=== PATIENT | female | born 1970 | race Caucasian/White ===

== ENCOUNTER 2016-11-08 08:10 | Inpatient (IN) | payer OTHER ==
[~2016-11-08] VITALS: Ht 167.6 cm; Wt 83.5 kg
--- NOTE | 2016-11-08 08:21 | NUR ---
pt is in room #2a. dr carreno evaluated the pt.
[2016-11-08] MEDS ORDERED: LORAZEPAM 0.5 MG TABLET PO ONE (08:30)
[2016-11-08] MEDS ORDERED: LORAZEPAM 1 MG TABLET ONE (08:44)
[2016-11-08 09:02] LABS: ALANINE AMINOTRANSFERASE 16 U/L (14-59); ALKALINE PHOSPHATASE 56 U/L (50-136); ASPARTATE AMINOTRANSFERASE 11 U/L (15-37); BILIRUBIN,DIRECT 0.1 mg/dL (0.0-0.2); BILIRUBIN,TOTAL 0.6 mg/dL (0.2-1.0); CARBON DIOXIDE 25 mmol/L (21-32); CHLORIDE 106 mmol/L (98-107); GLUCOSE 109 mg/dL (74-106); POTASSIUM 3.7 mmol/L (3.5-5.1); TOTAL PROTEIN, SERUM 7.1 g/dL (6.4-8.2); UREA NITROGEN, BLOOD 14 mg/dL (7-18)
[2016-11-08 09:04] LABS: BASOPHILS # (AUTO) 0.1 K/uL (0.0-8.0); BASOPHILS % (AUTO) 0.5 % (0.0-2.0); EOSINOPHILS # (AUTO) 0.1 K/uL (0.0-0.7); EOSINOPHILS % (AUTO) 1.4 % (0.0-7.0); LYMPHOCYTES # (AUTO) 2.9 K/UL (0.8-4.8); LYMPHOCYTES % (AUTO) 28.9 % (20.5-51.5); MEAN CORPUSCULAR HEMOGLOBIN 19.5 UUG (27.0-31.0); MEAN CORPUSCULAR HGB CONC 30 g/dL (32.0-37.0); MONOCYTES # (AUTO) 0.7 K/UL (0.1-1.30); MONOCYTES % (AUTO) 7.3 % (0.0-11.0); NEUTROPHILS # (AUTO) 6.3 K/UL (1.8-8.9); NEUTROPHILS % (AUTO) 61.9 % (38.5-71.5); PLATELET COUNT (AUTO) 246 K/UL (150-450); WHITE BLOOD COUNT (AUTO) 10.1 K/UL (4.0-11.2)
[2016-11-08 09:06] LABS: ETHANOL < 3 MG/DL (0-0)
[2016-11-08 09:07] LABS: HEMOGLOBIN 9.9 G/DL (12.0-16.0); RED BLOOD CELL COUNT(AUTO) 5.05 MIL/UL (4.2-5.4)
[2016-11-08 09:08] LABS: HEMATOCRIT 32.8 % (37-47)
[2016-11-08 09:09] LABS: ACETAMINOPHEN < 2.0 ug/mL (10-30)
[2016-11-08] MEDS ORDERED: ASPIRIN 325 MG TABLET PO ONE (09:15)
--- NOTE | 2016-11-08 09:21 | NUR ---
dr handy was called for cardiolody consultation.
[2016-11-08 09:27] LABS: BAND % (MANUAL) 2 % (0-10); LYMPHOCYTES % (MANUAL) 35 % (20-40); MONOCYTES % (MANUAL) 7 % (2-10); NEUTROPHILS % (MANUAL) 56 % (42-75)
[2016-11-08] MEDS ORDERED: ASPIRIN 325 MG TABLET ONE (09:29)
[2016-11-08] MEDS ORDERED: FUROSEMIDE 20 MG/2 ML VIAL IV ONE (09:30)
[2016-11-08] MEDS ORDERED: FUROSEMIDE 20 MG/2 ML VIAL ONE (09:43)
--- NOTE | 2016-11-08 10:03 | NUR ---
report was given to sports apparel internship. pt was transfered to telemetry room #205.
[2016-11-08 10:46] VITALS: BP 152/72
--- NOTE | 2016-11-08 11:00 | NUR ---
Received this admission from ER per noah, 46 yo female, with the chief complaint of cough and palpitation, diagnosis of chest pain, elevated troponin. Transferred to bed comfortably. Routine admission care rendered. Placed on [facility] 102. Awake, alert, oriented x 4, able to move all extremities on purpose, ambulatory, continent. Saline lock to LFA g20. Dr. Llamas informed of admission.
[2016-11-08 11:26] VITALS: BP 154/82
[2016-11-08] MEDS ORDERED: HYDROMORPHONE 1 MG/1 ML DISP.SYRIN IV PRN (12:00)
[2016-11-08] MEDS: LORAZEPAM 2 MG/1 ML VIAL IV PRN ×2 (12:14→18:43)
--- NOTE | 2016-11-08 12:15 | NUR ---
Complaints of palpitation and anxiety. Ativan given as ordered. Echocardiogram at bedside
--- NOTE | 2016-11-08 14:20 | NUR ---
Resting at this time
[2016-11-08 15:20] VITALS: BP 120/57
[2016-11-08] MEDS ORDERED: ACETAMINOPHEN 325 MG TABLET PO PRN (17:00)
[2016-11-08] MEDS ORDERED: ALBUTEROL SULFATE 2.5 MG/3 ML NEBU NEB PRN (17:00)
[2016-11-08] MEDS ORDERED: ZOLPIDEM 5 MG TABLET PO PRN (17:00)
[2016-11-08] MEDS ORDERED: MAGNESIUM HYDROXIDE 30 ML LIQUID UDC PO PRN (17:00)
[2016-11-08] MEDS ORDERED: LORAZEPAM 2 MG/1 ML VIAL IV PRN (17:00)
[2016-11-08] MEDS ORDERED: LEVALBUTEROL HCL NEB 0.63 MG/3 ML NEBU NEB PRN (19:15)
[2016-11-08 19:44] LABS: CREATININE 1.1 mg/dL (0.6-1.3); POTASSIUM 3.8 mmol/L (3.5-5.1)
[2016-11-08 20:32] VITALS: BP 139/88
[2016-11-08] MEDS: ONDANSETRON 4 MG/2 ML VIAL IV PRN (20:58)
[2016-11-08] MEDS: FUROSEMIDE 20 MG/2 ML VIAL IV SCH (20:58)
[2016-11-08] MEDS: HYDROMORPHONE 2 MG/1 ML DISP.SYRIN IV PRN (20:59)
--- NOTE | 2016-11-08 22:00 | NUR ---
Seen & examined by Spun Paste Machine Operator. Left forearm IV line infiltrated, re-started new IV line to her right forearm w/ [id number]. Medicated for pain PRN. Patient received Lasix 20mg IVP tonight, assisted to bedside commode PRN. Tele sinus rhythm w/ PVCs, Bigeminy & w/ occasional tachy rhythm. No signs of distress.
[2016-11-09 00:33] VITALS: BP 137/84
[2016-11-09 04:00] VITALS: BP 146/97
[2016-11-09] MEDS: PANTOPRAZOLE SODIUM 40 MG TABLET.DR PO SCH (06:18)
[2016-11-09 06:21] LABS: BASOPHILS % (AUTO) 0.5 % (0.0-2.0); EOSINOPHILS # (AUTO) 0.2 K/uL (0.0-0.7); EOSINOPHILS % (AUTO) 2.1 % (0.0-7.0); HEMATOCRIT 34.8 % (37-47); HEMOGLOBIN 10.7 G/DL (12.0-16.0); LYMPHOCYTES # (AUTO) 1.8 K/UL (0.8-4.8); LYMPHOCYTES % (AUTO) 20.2 % (20.5-51.5); MEAN CORPUSCULAR HEMOGLOBIN 20.1 UUG (27.0-31.0); MEAN CORPUSCULAR HGB CONC 31 g/dL (32.0-37.0); MEAN CORPUSCULAR VOLUME 65.4 FL (81.0-99.0); MONOCYTES # (AUTO) 0.5 K/UL (0.1-1.30); MONOCYTES % (AUTO) 5.4 % (0.0-11.0); NEUTROPHILS # (AUTO) 6.4 K/UL (1.8-8.9); NEUTROPHILS % (AUTO) 71.8 % (38.5-71.5); PLATELET COUNT (AUTO) 283 K/UL (150-450); RED BLOOD CELL COUNT(AUTO) 5.32 MIL/UL (4.2-5.4); WHITE BLOOD COUNT (AUTO) 8.9 K/UL (4.0-11.2)
--- NOTE | 2016-11-09 06:27 | NUR ---
No significant change, remains asleep at this. Patient rested well. Vital signs remains elevated 146/97, sinus rhythm on the monitor.
[2016-11-09 06:47] LABS: THYROID STIMULATING HORMONE 1.681 mIU/mL (0.358-3.740)
[2016-11-09 07:00] LABS: BILIRUBIN,TOTAL 0.5 mg/dL (0.2-1.0); CREATININE 1.2 mg/dL (0.6-1.3); MAGNESIUM 2.2 mg/dL (1.8-2.4); PHOSPHOROUS 3.7 mg/dL (2.5-4.9); POTASSIUM 3.9 mmol/L (3.5-5.1); TOTAL PROTEIN, SERUM 7.6 g/dL (6.4-8.2)
[2016-11-09 08:01] LABS: LYMPHOCYTES % (MANUAL) 23 % (20-40); MONOCYTES % (MANUAL) 3 % (2-10); NEUTROPHILS % (MANUAL) 74 % (42-75)
[2016-11-09] MEDS: ASPIRIN EC 81 MG TABLET.DR PO SCH (10:36)
[2016-11-09] MEDS: FUROSEMIDE 20 MG/2 ML VIAL IV SCH ×2 (10:37→20:13)
[2016-11-09] MEDS: HYDROMORPHONE 2 MG/1 ML DISP.SYRIN IV PRN (10:44)
[2016-11-09 11:50] VITALS: BP 122/72
[2016-11-09 19:00] VITALS: BP 103/59
--- NOTE | 2016-11-09 21:45 | NUR ---
Received PT sleeping in bed and arousable. No SOB. Denies chest pain. VS stable. Routine Lasix 20mg IVP given. Assisted to the bathroom PRN. Sinus Rhythm with PVC's on monitor. Will continue to monitor.
[2016-11-09 23:47] VITALS: BP 127/67
[2016-11-10] MEDS: HYDROMORPHONE 2 MG/1 ML DISP.SYRIN IV PRN ×3 (03:51→21:29)
[2016-11-10] MEDS: LORAZEPAM 2 MG/1 ML VIAL IV PRN ×2 (03:52→13:07)
--- NOTE | 2016-11-10 03:54 | NUR ---
Patient awake, assisted to the bathroom, then patient c/o right lower chest discomfort & anxiousness. Tele shows Sinus rhythm w/ PVCs & HR- 86 Medicated w/ Dilaudid 0.5mg IVP & Ativan 1mg IVP. Will continue to monitor.
[2016-11-10 04:00] VITALS: BP 107/64
[2016-11-10] MEDS: PANTOPRAZOLE SODIUM 40 MG TABLET.DR PO SCH (06:20)
--- NOTE | 2016-11-10 07:02 | NUR ---
No significant change at this time. Pt remains asleep and easily arousable. No SOB noted. All routine medications given as ordered and tolerated well. Tele monitor shows Sinus Rhythm with PVC's. IV site patent and intact.
[2016-11-10 07:15] LABS: CREATININE 1.1 mg/dL (0.6-1.3); MAGNESIUM 2.1 mg/dL (1.8-2.4); PHOSPHOROUS 3.4 mg/dL (2.5-4.9); POTASSIUM 3.8 mmol/L (3.5-5.1)
[2016-11-10 07:35] LABS: BASOPHILS # (AUTO) 0.1 K/uL (0.0-8.0); EOSINOPHILS # (AUTO) 0.4 K/uL (0.0-0.7); EOSINOPHILS % (AUTO) 3.8 % (0.0-7.0); MONOCYTES % (AUTO) 5.2 % (0.0-11.0)
[2016-11-10 07:53] LABS: BASOPHILS % (AUTO) 0.7 % (0.0-2.0); HEMATOCRIT 36.4 % (37-47); LYMPHOCYTES # (AUTO) 2.6 K/UL (0.8-4.8); LYMPHOCYTES % (AUTO) 24.7 % (20.5-51.5); MEAN CORPUSCULAR HEMOGLOBIN 19.7 UUG (27.0-31.0); MEAN CORPUSCULAR HGB CONC 30 g/dL (32.0-37.0); MEAN CORPUSCULAR VOLUME 65.4 FL (81.0-99.0); MONOCYTES # (AUTO) 0.5 K/UL (0.1-1.30); NEUTROPHILS # (AUTO) 6.9 K/UL (1.8-8.9); NEUTROPHILS % (AUTO) 65.6 % (38.5-71.5); PLATELET COUNT (AUTO) 325 K/UL (150-450); RED BLOOD CELL COUNT(AUTO) 5.56 MIL/UL (4.2-5.4); WHITE BLOOD COUNT (AUTO) 10.5 K/UL (4.0-11.2)
[2016-11-10] MEDS: ASPIRIN EC 81 MG TABLET.DR PO SCH (08:15)
[2016-11-10] MEDS: FUROSEMIDE 20 MG/2 ML VIAL IV SCH ×2 (09:00→21:14)
[2016-11-10 09:57] LABS: EOSINOPHILS % (MANUAL) 3 % (0-8); LYMPHOCYTES % (MANUAL) 24 % (20-40); NEUTROPHILS % (MANUAL) 73 % (42-75)
[2016-11-10 12:09] VITALS: BP 107/63
[2016-11-10] MEDS ORDERED: LORAZEPAM 2 MG/1 ML VIAL IV ONE (13:00)
[2016-11-10] MEDS: ONDANSETRON 4 MG/2 ML VIAL IV PRN (13:07)
[2016-11-10 15:50] VITALS: BP 128/74
[2016-11-10] MEDS ORDERED: ALBUTEROL SULFATE 1.25 MG/3 ML NEBU NEB PRN (16:30)
[2016-11-10] MEDS: CARVEDILOL 3.125 MG TABLET PO SCH (18:55)
--- NOTE | 2016-11-10 19:40 | NUR ---
Received pt in bed, asleep and easily arousable when name called. C/O tolerable pain in right ribs at this time. Denies any chest pain. Able to reposition self for comfort. Safety measures and fall precaution maintained. Continue current plan of care.
[2016-11-10 19:50] VITALS: BP 90/63
--- NOTE | 2016-11-10 21:35 | NUR ---
Pt C/O right rib pain on scale of 7/10. Medicated as ordered and as needed. Continue to monitor.
[2016-11-11 05:09] VITALS: BP 119/54
--- NOTE | 2016-11-11 05:50 | NUR ---
Shift end report: Pt. slept well. Ambulatory to bathroom independently with steady gait. Medication x1 for pain with relief. No further complaints presented. All needs attended. Continue current plan of care.
[2016-11-11] MEDS: HYDROMORPHONE 2 MG/1 ML DISP.SYRIN IV PRN ×2 (06:17→14:00)
[2016-11-11] MEDS: PANTOPRAZOLE SODIUM 40 MG TABLET.DR PO SCH (07:00)
[2016-11-11] MEDS: FUROSEMIDE 20 MG/2 ML VIAL IV SCH (07:55)
[2016-11-11] MEDS ORDERED: TEMAZEPAM 15 MG CAPSULE PO PRN (08:00)
[2016-11-11] MEDS: CARVEDILOL 3.125 MG TABLET PO SCH ×2 (08:00→08:47)
--- NOTE | 2016-11-11 08:05 | NUR ---
Patient had what appeared to be a seizure lasting 30 seconds. Rapid response called to ensure patient safety. Dr. Llamas notified. Patient denied knowing her location, but was able to respond to name. Patient required vigorous sternal rubbing. BP 141/79, P 110, 94% RA. Track Service Person and Charge nurse present.
[2016-11-11] MEDS: ASPIRIN EC 81 MG TABLET.DR PO SCH ×2 (08:06→08:48)
[2016-11-11 08:43] LABS: CREATININE 1.1 mg/dL (0.6-1.3)
[2016-11-11 08:55] LABS: BASOPHILS % (AUTO) 0.3 % (0.0-2.0); EOSINOPHILS # (AUTO) 0.4 K/uL (0.0-0.7); EOSINOPHILS % (AUTO) 3.5 % (0.0-7.0); HEMATOCRIT 38.1 % (37-47); HEMOGLOBIN 11.6 G/DL (12.0-16.0); LYMPHOCYTES # (AUTO) 2.6 K/UL (0.8-4.8); LYMPHOCYTES % (AUTO) 23.9 % (20.5-51.5); MAGNESIUM 2.2 mg/dL (1.8-2.4); MEAN CORPUSCULAR HEMOGLOBIN 19.7 UUG (27.0-31.0); MEAN CORPUSCULAR HGB CONC 30 g/dL (32.0-37.0); MONOCYTES # (AUTO) 0.7 K/UL (0.1-1.30); MONOCYTES % (AUTO) 6.6 % (0.0-11.0); NEUTROPHILS # (AUTO) 7.3 K/UL (1.8-8.9); NEUTROPHILS % (AUTO) 65.7 % (38.5-71.5); PHOSPHOROUS 4.5 mg/dL (2.5-4.9); PLATELET COUNT (AUTO) 337 K/UL (150-450); RED BLOOD CELL COUNT(AUTO) 5.86 MIL/UL (4.2-5.4)
[2016-11-11] MEDS ORDERED: FERROUS SULFATE 325 MG TABEC PO SCH (09:00)
[2016-11-11] MEDS ORDERED: SERTRALINE HCL 50 MG TABLET PO SCH (09:00)
[2016-11-11 09:33] LABS: EOSINOPHILS % (MANUAL) 9 % (0-8); LYMPHOCYTES % (MANUAL) 25 % (20-40); MONOCYTES % (MANUAL) 4 % (2-10); NEUTROPHILS % (MANUAL) 62 % (42-75)
[2016-11-11 11:06] VITALS: BP 107/63
[2016-11-11] MEDS: ONDANSETRON 4 MG/2 ML VIAL IV PRN (13:59)
[2016-11-11 15:21] VITALS: BP 124/76
[2016-11-11] MEDS ORDERED: GABAPENTIN 300 MG CAPSULE PO SCH ×2 (15:45→22:00)
[2016-11-11] MEDS ORDERED: GABAPENTIN 300 MG CAPSULE PO ONE (16:00)
--- NOTE | 2016-11-11 16:29 | NUR ---
The patient will be discharged today back home [[address], [place] [address]] [address] Llamas. She currently resides with her boyfriend but he is unable to pick her up. Spoke to the patient and she was in agreement with her discharge. She requested for this court reporter to call her mother, Jacqueline [ ], about her discharge and the possibility of her providing the ride home. Spoke to Jacqueline and she stated that she is able to continuous pickling line pickler the patient around 6:00 p.m. The patient was made aware. Her RN, Briseida, is aware of her discharge plan.
[2016-11-11] MEDS ORDERED: FURO20TA4 PO (16:52)
[2016-11-11] MEDS ORDERED: TEMA15CA5 PO (16:52)
[2016-11-11] MEDS ORDERED: ALPR0.5T8 PO (16:52)
[2016-11-11] MEDS ORDERED: ASPI-618 PO (16:52)
[2016-11-11] MEDS ORDERED: CARV3.122 PO (16:52)
[2016-11-11] MEDS ORDERED: SERT50TA12 PO (16:52)
[2016-11-11] MEDS ORDERED: FERR325T28 PO (16:52)
[2016-11-11] MEDS ORDERED: GABA-534 PO (16:52)
[2016-11-11] MEDS ORDERED: ACET325T53 PO (16:52)
[2016-11-11] MEDS ORDERED: FUROSEMIDE 20 MG TABLET PO SCH (17:00)
--- NOTE | 2016-11-11 18:21 | NUR ---
Patient discharged from unit with mother. Discussed the importance of patient getting a follow up appointment. Patient has contact number for the primary physician. Dr. Teagan Shaffer. Patient also educated on the prescribed medications. Patient given information on Gabapentin to ensure seizures are kept at bay. Patient verbalized understanding. Armband removed. IV removed. Belongings returned. All discharge paperwork signed.
== END 2016-11-11 18:16 | disposition home or self-care (01) | DRG 194 ==
LOC: ER 08:10 → TELE 10:08 → MED 11-10 11:16
PROVIDERS: ADMIT Internal Medicine; ATTEND Internal Medicine
DX: I11.0 Hypertensive heart disease with heart failure (principal); I21.4 Non-ST elevation (NSTEMI) myocardial infarction; I42.9 Cardiomyopathy, unspecified; I50.23 Acute on chronic systolic (congestive) heart failure; F31.9 Bipolar disorder, unspecified; Z91.14 Patient's other noncompliance with medication regimen; E66.9 Obesity, unspecified; Z68.29 Body mass index [BMI] 29.0-29.9, adult; J06.9 Acute upper respiratory infection, unspecified; J44.9 Chronic obstructive pulmonary disease, unspecified; F41.0 Panic disorder [episodic paroxysmal anxiety]; G40.909 Epilepsy, unspecified, not intractable, without status epilepticus; E11.9 Type 2 diabetes mellitus without complications; F43.10 Post-traumatic stress disorder, unspecified; G43.909 Migraine, unspecified, not intractable, without status migrainosus; I49.3 Ventricular premature depolarization; I27.2 Other secondary pulmonary hypertension; I08.1 Rheumatic disorders of both mitral and tricuspid valves; Z82.49 Family history of ischemic heart disease and other diseases of the circulatory system; Z83.3 Family history of diabetes mellitus; Z82.3 Family history of stroke; Z87.898 Personal history of other specified conditions; Z87.442 Personal history of urinary calculi
CPT/HCPCS: 36415; 70030-TC; 71010; 83550; 83735; 84100; 84443; 85025; 93005; 93307; A4663; G0480; G0480-TC; J1170; J1940; J2060; J2405

== ENCOUNTER 2017-03-23 02:16 | Inpatient (IN) | payer OTHER ==
[~2017-03-23] VITALS: Ht 165.1 cm; Wt 74.8 kg
[~2017-03-23 02:16] MED LIST: ACET325T53 PO; ASPI-618 PO; CARV3.122 PO; FERR325T28 PO; FURO20TA4 PO; GABA-534 PO; SERT50TA12 PO
[2017-03-23 03:51] LABS: BASOPHILS % (AUTO) 0.4 % (0.0-2.0); EOSINOPHILS # (AUTO) 0.1 K/uL (0.0-0.7); EOSINOPHILS % (AUTO) 0.6 % (0.0-7.0); HEMATOCRIT 40.5 % (31.2-41.9); LYMPHOCYTES # (AUTO) 0.7 K/uL (20.0-40.0); LYMPHOCYTES % (AUTO) 5.1 % (20.5-51.5); MEAN CORPUSCULAR HEMOGLOBIN 24.2 uug (24.7-32.8); MEAN CORPUSCULAR HGB CONC 32 g/dL (32.3-35.6); MEAN CORPUSCULAR VOLUME 75.2 fL (75.5-95.3); MONOCYTES # (AUTO) 0.4 K/uL (2.0-10.0); MONOCYTES % (AUTO) 3.1 % (0.0-11.0); NEUTROPHILS % (AUTO) 90.8 % (38.5-71.5); PLATELET COUNT (AUTO) 351 K/uL (179-408); RED BLOOD CELL COUNT(AUTO) 5.38 MIL/uL (3.63-4.92); WHITE BLOOD COUNT (AUTO) 13.3 K/uL (3.8-11.8)
[2017-03-23 04:12] LABS: CREATININE 1.1 mg/dL (0.6-1.3); POTASSIUM 3.8 mmol/L (3.5-5.1)
[2017-03-23 04:24] LABS: BILIRUBIN,DIRECT 0.2 mg/dL (0.0-0.2); TOTAL PROTEIN, SERUM 7.4 g/dL (6.4-8.2)
[2017-03-23] MEDS ORDERED: ONDANSETRON IV *ER 4 MG/2 ML VIAL IV ONE (05:15)
[2017-03-23] MEDS ORDERED: HYDROMORPHONE 1 MG/1 ML DISP.SYRIN IV ONE (05:15)
[2017-03-23] MEDS ORDERED: HYDROMORPHONE 1 MG/1 ML DISP.SYRIN ONE (05:37)
[2017-03-23] MEDS ORDERED: ONDANSETRON 4 MG/2 ML VIAL ONE ×2 (05:38→09:59)
[2017-03-23] MEDS ORDERED: ACETAMINOPHEN 325 MG TABLET PO PRN ×2 (06:45→07:00)
[2017-03-23] MEDS ORDERED: MAGNESIUM HYDROXIDE 30 ML LIQUID UDC PO PRN (07:00)
[2017-03-23] MEDS ORDERED: Z GUARD REMEDY PASTE 57 GM TUBE TOP PRN (07:00)
[2017-03-23] MEDS ORDERED: HYDROCODONE/APAP 5-325MG TABLET PO PRN (07:00)
[2017-03-23] MEDS ORDERED: HYDROMORPHONE 2 MG/1 ML DISP.SYRIN ONE ×3 (08:52→21:25)
[2017-03-23] MEDS: CARVEDILOL 3.125 MG TABLET PO SCH ×2 (08:53→18:19)
[2017-03-23] MEDS ORDERED: FUROSEMIDE 40 MG/4 ML VIAL ONE (08:53)
[2017-03-23] MEDS ORDERED: CARVEDILOL 3.125 MG TABLET ONE (08:55)
[2017-03-23] MEDS: SERTRALINE HCL 50 MG TABLET PO SCH (08:55)
[2017-03-23] MEDS: HYDROMORPHONE 1 MG/1 ML DISP.SYRIN IV PRN ×3 (08:55→21:12)
[2017-03-23] MEDS ORDERED: SERTRALINE HCL 50 MG TABLET ONE (09:05)
[2017-03-23] MEDS: ONDANSETRON 4 MG/2 ML VIAL IV PRN ×2 (09:50→21:21)
[2017-03-23] MEDS ORDERED: FUROSEMIDE 40 MG/4 ML VIAL IV SCH (11:20)
[2017-03-23] MEDS: ASPIRIN EC 81 MG TABLET.DR PO SCH (13:55)
[2017-03-23 15:09] VITALS: BP 143/100
[2017-03-23] MEDS ORDERED: FUROSEMIDE 20 MG/2 ML VIAL IV SCH (15:45)
[2017-03-23] MEDS ORDERED: TEMAZEPAM 15 MG CAPSULE PO PRN (15:45)
[2017-03-23] MEDS: GABAPENTIN 300 MG CAPSULE PO SCH ×2 (16:18→22:00)
[2017-03-23] MEDS ORDERED: GABAPENTIN 300 MG CAPSULE PO SCH (17:00)
[2017-03-23] MEDS ORDERED: CARVEDILOL 3.125 MG TABLET PO SCH (18:00)
[2017-03-23] MEDS: HYDROCODONE/APAP 10-325 MG TABLET PO PRN (18:19)
[2017-03-23 20:00] VITALS: BP 145/99
[2017-03-23] MEDS ORDERED: CEFTRIAXONE 1 G in IV DEXTROSE 5% 50 ML IV SCH (21:30)
[2017-03-24] VITALS: BP 125/79
[2017-03-24 04:00] VITALS: BP 114/70
[2017-03-24] MEDS: ONDANSETRON 4 MG/2 ML VIAL IV PRN (04:25)
[2017-03-24] MEDS: HYDROMORPHONE 1 MG/1 ML DISP.SYRIN IV PRN (04:25)
[2017-03-24] MEDS ORDERED: HYDROMORPHONE 2 MG/1 ML DISP.SYRIN ONE (04:40)
[2017-03-24] MEDS: GABAPENTIN 300 MG CAPSULE PO SCH ×2 (05:44→15:39)
[2017-03-24 06:38] LABS: MAGNESIUM 2.2 mg/dL (1.8-2.4); PHOSPHOROUS 3.7 mg/dL (2.5-4.9); POTASSIUM 3.7 mmol/L (3.5-5.1)
[2017-03-24 06:54] LABS: BASOPHILS % (AUTO) 0.5 % (0.0-2.0); EOSINOPHILS # (AUTO) 0.2 K/uL (0.0-0.7); EOSINOPHILS % (AUTO) 3.4 % (0.0-7.0); HEMATOCRIT 38.8 % (31.2-41.9); HEMOGLOBIN 12.7 g/dL (10.9-14.3); LYMPHOCYTES # (AUTO) 1.2 K/uL (20.0-40.0); MEAN CORPUSCULAR HEMOGLOBIN 24.7 uug (24.7-32.8); MEAN CORPUSCULAR HGB CONC 33 g/dL (32.3-35.6); MEAN CORPUSCULAR VOLUME 75.6 fL (75.5-95.3); MONOCYTES # (AUTO) 0.6 K/uL (2.0-10.0); MONOCYTES % (AUTO) 9.6 % (0.0-11.0); NEUTROPHILS # (AUTO) 4.4 K/uL (1.8-8.9); NEUTROPHILS % (AUTO) 68.5 % (38.5-71.5); PLATELET COUNT (AUTO) 308 K/uL (179-408); RED BLOOD CELL COUNT(AUTO) 5.13 MIL/uL (3.63-4.92); WHITE BLOOD COUNT (AUTO) 6.4 K/uL (3.8-11.8)
[2017-03-24] MEDS: CARVEDILOL 3.125 MG TABLET PO SCH (08:14)
[2017-03-24] MEDS: SERTRALINE HCL 50 MG TABLET PO SCH (08:14)
[2017-03-24] MEDS: ASPIRIN EC 81 MG TABLET.DR PO SCH (08:15)
[2017-03-24] MEDS: HYDROCODONE/APAP 10-325 MG TABLET PO PRN (08:15)
[2017-03-24] MEDS ORDERED: FUROSEMIDE 40 MG TABLET PO SCH (09:00)
[2017-03-24] MEDS ORDERED: SERTRALINE HCL 50 MG TABLET PO SCH (09:00)
[2017-03-24 11:04] VITALS: BP 130/82
[2017-03-24] MEDS ORDERED: CIPR-262 PO (13:34)
[2017-03-24] MEDS ORDERED: METR500T PO (13:34)
[2017-03-24 15:12] VITALS: BP 111/76
== END 2017-03-24 17:30 | disposition home or self-care (01) ==
LOC: ER 02:20 → TRANSITION 11:13 → TELE 14:03
PROVIDERS: ADMIT Internal Medicine; ATTEND Nurse Practitioner Acute Care
DX: K80.20 Calculus of gallbladder without cholecystitis without obstruction (principal); I42.9 Cardiomyopathy, unspecified; I11.0 Hypertensive heart disease with heart failure; E44.1 Mild protein-calorie malnutrition; I27.20 Pulmonary hypertension, unspecified; I50.22 Chronic systolic (congestive) heart failure; N20.0 Calculus of kidney; I08.1 Rheumatic disorders of both mitral and tricuspid valves; Z68.27 Body mass index [BMI] 27.0-27.9, adult; Z79.899 Other long term (current) drug therapy; Z79.82 Long term (current) use of aspirin; E66.9 Obesity, unspecified; G43.909 Migraine, unspecified, not intractable, without status migrainosus; F31.9 Bipolar disorder, unspecified; Z87.442 Personal history of urinary calculi; K42.9 Umbilical hernia without obstruction or gangrene; I49.3 Ventricular premature depolarization; I25.2 Old myocardial infarction; I25.10 Atherosclerotic heart disease of native coronary artery without angina pectoris; F43.10 Post-traumatic stress disorder, unspecified; E11.9 Type 2 diabetes mellitus without complications; G40.909 Epilepsy, unspecified, not intractable, without status epilepticus
CPT/HCPCS: 36415; 70030-TC; 71045; 78445; 83690; 83735; 84100; 85025; 85730; 93005; A4663; A9537; J0696; J1170; J1940; J2405; J7050; J7060

== ENCOUNTER 2017-05-25 21:09 | Inpatient (IN) | payer OTHER ==
[~2017-05-25] VITALS: Ht 165.1 cm; Wt 81.8 kg
[~2017-05-25 21:09] MED LIST changes: +CIPR-262 PO; +METR500T PO
--- NOTE | 2017-05-25 21:27 | NUR ---
pt bib RA100. pt aaox3, screaming and crying c/o severe RLQ abdominal pain. pt very restless and unable to stay still. able to speak in clear and complete sentences and make needs known.
--- NOTE | 2017-05-25 21:31 | NUR ---
pt states she had this abdominal pain intermittently x1 week. has been taking norco but has not been effective
[2017-05-25] MEDS ORDERED: IV NORMAL SALINE 1000 ML BAG IV ONE (22:30)
[2017-05-25] MEDS ORDERED: METOCLOPRAMIDE HCL 10 MG/2 ML VIAL IV ONE (22:30)
[2017-05-25] MEDS ORDERED: MORPHINE SULFATE 2 MG/1 ML DISP.SYRIN IV ONE (22:30)
[2017-05-25] MEDS ORDERED: METOCLOPRAMIDE HCL 10 MG/2 ML VIAL ONE (22:34)
[2017-05-25] MEDS ORDERED: MORPHINE SULFATE 4 MG/1 ML DISP.SYRIN ONE (22:35)
[2017-05-25 22:47] LABS: BASOPHILS # (AUTO) 0.1 K/uL (0.0-8.0); BASOPHILS % (AUTO) 0.4 % (0.0-2.0); EOSINOPHILS # (AUTO) 0.2 K/uL (0.0-0.7); EOSINOPHILS % (AUTO) 1.5 % (0.0-7.0); HEMATOCRIT 45.8 % (31.2-41.9); HEMOGLOBIN 14.3 g/dL (10.9-14.3); LYMPHOCYTES # (AUTO) 1.5 K/uL (20.0-40.0); LYMPHOCYTES % (AUTO) 11.8 % (20.5-51.5); MEAN CORPUSCULAR HGB CONC 31 g/dL (32.3-35.6); MEAN CORPUSCULAR VOLUME 73.4 fL (75.5-95.3); MONOCYTES # (AUTO) 0.9 K/uL (2.0-10.0); MONOCYTES % (AUTO) 6.6 % (0.0-11.0); NEUTROPHILS # (AUTO) 10.3 K/uL (1.8-8.9); NEUTROPHILS % (AUTO) 79.7 % (38.5-71.5); PLATELET COUNT (AUTO) 337 K/uL (179-408); RED BLOOD CELL COUNT(AUTO) 6.24 MIL/uL (3.63-4.92)
[2017-05-25] MEDS ORDERED: diphenhydrAMINE 50 MG/1 ML VIAL ONE (22:54)
[2017-05-25 22:56] LABS: CREATININE 1.1 mg/dL (0.6-1.3); POTASSIUM 3.1 mmol/L (3.5-5.1)
[2017-05-25] MEDS ORDERED: diphenhydrAMINE 50 MG/1 ML VIAL IV ONE (23:00)
[2017-05-25 23:02] LABS: BILIRUBIN,DIRECT 0.1 mg/dL (0.0-0.2); BILIRUBIN,TOTAL 0.4 mg/dL (0.2-1.0); TOTAL PROTEIN, SERUM 8.5 g/dL (6.4-8.2)
--- NOTE | 2017-05-25 23:48 | NUR ---
Patient is resting comfortably in bed with eyes closed with mother at bedside.
[2017-05-26] MEDS ORDERED: diphenhydrAMINE 50 MG/1 ML VIAL ONE (00:34)
[2017-05-26] MEDS ORDERED: MORPHINE SULFATE 4 MG/1 ML DISP.SYRIN ONE ×2 (00:35→03:51)
[2017-05-26] MEDS ORDERED: diphenhydrAMINE 50 MG/1 ML VIAL IV ONE (00:45)
[2017-05-26] MEDS ORDERED: MORPHINE SULFATE 4 MG/1 ML DISP.SYRIN IV ONE ×2 (00:45→03:30)
[2017-05-26] MEDS ORDERED: ACETAMINOPHEN 325 MG TABLET PO PRN (03:15)
[2017-05-26] MEDS ORDERED: HYDROCODONE/APAP 5-325MG TABLET PO PRN (03:15)
[2017-05-26] MEDS ORDERED: ONDANSETRON 4 MG/2 ML VIAL IV PRN (03:15)
[2017-05-26] MEDS ORDERED: MAGNESIUM HYDROXIDE 30 ML LIQUID UDC PO PRN (03:15)
[2017-05-26] MEDS ORDERED: Z GUARD REMEDY PASTE 57 GM TUBE TOP PRN (03:15)
[2017-05-26] MEDS ORDERED: ALPR0.255 PO (03:53)
[2017-05-26] MEDS ORDERED: TEMA15CA PO (03:53)
[2017-05-26 04:18] LABS: BAND % (MANUAL) 1 % (0-10); EOSINOPHILS % (MANUAL) 1 % (0-8); LYMPHOCYTES % (MANUAL) 14 % (20-40); MONOCYTES % (MANUAL) 4 % (2-10); NEUTROPHILS % (MANUAL) 80 % (42-75)
--- NOTE | 2017-05-26 04:35 | NUR ---
Dr. Vo speaking with Dr. Mayfield with [facility]
[2017-05-26] MEDS ORDERED: KETAMINE HCL 500 MG/10 ML INJ IV ONE (05:30)
--- NOTE | 2017-05-26 05:30 | NUR ---
PT REFUSED TO BE TRANSFERRED TO [facility]. CALLED MOISES FELTON (TOOL GRINDER OPERATOR), PER MOISES, PT TO BE ADMITTED HERE [facility]IL [facility]. PT MADE AWARE.
[2017-05-26] MEDS ORDERED: KETAMINE HCL 500 MG/10 ML INJ ONE (05:53)
--- NOTE | 2017-05-26 06:13 | NUR ---
REPORT GIVEN TO INPT NURSE LUPE SIERRA.
--- NOTE | 2017-05-26 06:45 | NUR ---
PT ALERT IN NO ACUTE DISTRESS SLEEPING ADMITTED TO [facility]. BP 131/78 HR 74 O2 SAT 96% RA, T 100.2. AWAITING ADMITTING ORDERS. BED ALARM ON, 3 SIDE RAILS RAISED AND CALL LIGHT PLACED WITHIN REACH. CONTINUE TO MONITOR.
[2017-05-26 07:07] VITALS: BP 131/78
[2017-05-26] MEDS: GABAPENTIN 300 MG CAPSULE PO SCH ×4 (07:34→22:40)
--- NOTE | 2017-05-26 07:35 | NUR ---
PT AT THIS TIME IS TOO LETHARGIC TO TAKE MEDICATION ORALLY. THE MEDICATION WAS NOT VERIFIED AND PT DIDN'T ARRIVE ON THE UNIT UNTIL 0645 ACCORDING TO CUSTOMER GREETER NURSE.
[2017-05-26] MEDS: TAMSULOSIN HCL 0.4 MG CAP.SR.24H PO SCH (08:58)
[2017-05-26] MEDS: SERTRALINE HCL 50 MG TABLET PO SCH (08:59)
[2017-05-26] MEDS ORDERED: ASPIRIN EC 81 MG TABLET.DR PO SCH (09:00)
[2017-05-26] MEDS: CARVEDILOL 3.125 MG TABLET PO SCH ×2 (09:07→17:17)
[2017-05-26] MEDS: HYDROMORPHONE 2 MG/1 ML DISP.SYRIN IV PRN ×3 (09:54→21:13)
[2017-05-26] MEDS ORDERED: ALPRAZOLAM 0.25 MG TABLET PO PRN (10:30)
[2017-05-26] MEDS: PANTOPRAZOLE SODIUM 40 MG VIAL IV SCH (10:52)
[2017-05-26 11:19] LABS: BASOPHILS # (AUTO) 0.1 K/uL (0.0-8.0); BASOPHILS % (AUTO) 1.2 % (0.0-2.0); EOSINOPHILS # (AUTO) 0.1 K/uL (0.0-0.7); EOSINOPHILS % (AUTO) 1.5 % (0.0-7.0); LYMPHOCYTES # (AUTO) 1.8 K/uL (20.0-40.0); LYMPHOCYTES % (AUTO) 17.9 % (20.5-51.5); MEAN CORPUSCULAR HEMOGLOBIN 23.2 uug (24.7-32.8); MEAN CORPUSCULAR HGB CONC 32 g/dL (32.3-35.6); MEAN CORPUSCULAR VOLUME 72.6 fL (75.5-95.3); MONOCYTES # (AUTO) 0.9 K/uL (2.0-10.0); MONOCYTES % (AUTO) 9.2 % (0.0-11.0); NEUTROPHILS # (AUTO) 7.2 K/uL (1.8-8.9); NEUTROPHILS % (AUTO) 70.2 % (38.5-71.5); PLATELET COUNT (AUTO) 252 K/uL (179-408); RED BLOOD CELL COUNT(AUTO) 5.11 MIL/uL (3.63-4.92); WHITE BLOOD COUNT (AUTO) 10.2 K/uL (3.8-11.8)
[2017-05-26 11:28] LABS: HEMATOCRIT 37.1 % (31.2-41.9); HEMOGLOBIN 11.8 g/dL (10.9-14.3)
[2017-05-26 11:46] VITALS: BP 95/73
[2017-05-26 11:52] LABS: BILIRUBIN,TOTAL 0.5 mg/dL (0.2-1.0); CREATININE 1.3 mg/dL (0.6-1.3); MAGNESIUM 1.8 mg/dL (1.8-2.4); PHOSPHOROUS 3.2 mg/dL (2.5-4.9); POTASSIUM 3.5 mmol/L (3.5-5.1); TOTAL PROTEIN, SERUM 6.4 g/dL (6.4-8.2)
[2017-05-26 12:01] LABS: THYROID STIMULATING HORMONE 3.819 mIU/mL (0.358-3.740)
[2017-05-26] MEDS: CIPROFLOXACIN IV 400 MG in PREMIXED 1 EACH IV SCH ×2 (12:04→21:13)
[2017-05-26 12:50] LABS: EOSINOPHILS % (MANUAL) 1 % (0-8); LYMPHOCYTES % (MANUAL) 17 % (20-40); MONOCYTES % (MANUAL) 7 % (2-10); NEUTROPHILS % (MANUAL) 75 % (42-75)
[2017-05-26] MEDS ORDERED: ACETAMINOPHEN 650 MG SUPP.RECT RC PRN (13:45)
[2017-05-26] MEDS: PIPERACILLIN/TAZOBACTAM/D5W 3.375 G in PREMIXED 1 EACH IV SCH ×2 (14:47→22:40)
[2017-05-26] MEDS: IV D5 1/2 NS 1000 ML 1,000 ML IV PRN (17:49)
--- NOTE | 2017-05-26 18:17 | NUR ---
PT URINE COLLECTED AND STRAINED, NO STONE IN THE STRAINER ONLY WHITE RESIDUE IS COLLECTED. PT OBSERVED EATING IN BED ITCHMD Juan NOTIFIED BENADRYL ORDERED. PT HAS NO SIGNS OF RESPIRATORY DISTRESS AT THIS TIME. IV INTACT.CONTINUE TO MONITOR PT.
[2017-05-26] MEDS ORDERED: diphenhydrAMINE 25 MG CAP PO PRN (18:30)
[2017-05-26] MEDS: diphenhydrAMINE 50 MG/1 ML VIAL IV PRN (18:33)
--- NOTE | 2017-05-26 19:30 | NUR ---
Received patient laying comfortably in bed. Asleep at the moment. No acute distress noted. TELE Sinus Rhythm. IVF infusing. Bed is kept low and locked position. Room is kept clutter free. Safety initiated. Call light within reach. Will continue to monitor.
[2017-05-26 20:00] VITALS: BP 102/47
[2017-05-26] MEDS: TEMAZEPAM 15 MG CAPSULE PO SCH (21:00)
[2017-05-26 22:10] LABS: *BILIRUBIN,URIN NEGATIVE (NEGATIVE); *BLOOD, URINE Trace-intact (NEGATIVE); *CLARITY,URINE CLEAR (CLEAR); *COLOR,URINE DARK YELLOW (YELLOW); *KETONES,URINE NEGATIVE (NEGATIVE); *PROTEIN,URINE 1+ (NEGATIVE); *UROBILINOGEN,URINE 0.2 E.U./dl (NORMAL); LEUKOCYTE ESTERASE ,URINE NEGATIVE (NEGATIVE); NITRITE, URINE NEGATIVE (NEGATIVE); PH,URINE 5.5 (5.0-8.0); UGLUCOSE NEGATIVE (NEGATIVE)
[2017-05-26 22:16] LABS: BACTERIA,URINE FEW /HPF (NONE SEEN)
[2017-05-26 22:17] LABS: MUCUS,URINE FEW /LPF (0-FEW); SQUAMOUS EPITHELIAL CELL,UR FEW /HPF (NONE SEEN)
[2017-05-27] VITALS: BP 105/57
[2017-05-27] MEDS: HYDROMORPHONE 2 MG/1 ML DISP.SYRIN IV PRN ×2 (02:11→06:39)
[2017-05-27] MEDS: diphenhydrAMINE 50 MG/1 ML VIAL IV PRN ×2 (02:15→22:15)
[2017-05-27 04:00] VITALS: BP 151/82
[2017-05-27] MEDS: GABAPENTIN 300 MG CAPSULE PO SCH ×3 (05:31→22:07)
[2017-05-27] MEDS: PIPERACILLIN/TAZOBACTAM/D5W 3.375 G in PREMIXED 1 EACH IV SCH ×3 (05:36→22:07)
--- NOTE | 2017-05-27 05:57 | NUR ---
Patient slept intermittently t/o shift. C/o 10/ in Right upper quadrant pain through out shift. Meds given, stated relief. TELE Sinus Rhythm. Keep on Room Air. Vital signs stable. IVF infusing. IV site patent and intact. Safety and comfort measures maintained t/o shift. Maintain NPO t/o shift. Strained urine x 2, no stone visible, only white residue. All meds given as ordered. All needs met.
[2017-05-27 07:48] LABS: CREATININE 1.4 mg/dL (0.6-1.3); PHOSPHOROUS 3.5 mg/dL (2.5-4.9); POTASSIUM 4.2 mmol/L (3.5-5.1)
[2017-05-27 07:50] LABS: BASOPHILS # (AUTO) 0.1 K/uL (0.0-8.0); BASOPHILS % (AUTO) 0.6 % (0.0-2.0); EOSINOPHILS # (AUTO) 0.3 K/uL (0.0-0.7); EOSINOPHILS % (AUTO) 3.2 % (0.0-7.0); HEMATOCRIT 35.8 % (31.2-41.9); HEMOGLOBIN 11.2 g/dL (10.9-14.3); LYMPHOCYTES # (AUTO) 1.8 K/uL (20.0-40.0); LYMPHOCYTES % (AUTO) 21.6 % (20.5-51.5); MEAN CORPUSCULAR HEMOGLOBIN 23.3 uug (24.7-32.8); MEAN CORPUSCULAR HGB CONC 31 g/dL (32.3-35.6); MEAN CORPUSCULAR VOLUME 74.2 fL (75.5-95.3); MONOCYTES # (AUTO) 0.7 K/uL (2.0-10.0); MONOCYTES % (AUTO) 8.5 % (0.0-11.0); NEUTROPHILS # (AUTO) 5.5 K/uL (1.8-8.9); NEUTROPHILS % (AUTO) 66.1 % (38.5-71.5); PLATELET COUNT (AUTO) 259 K/uL (179-408); RED BLOOD CELL COUNT(AUTO) 4.82 MIL/uL (3.63-4.92); WHITE BLOOD COUNT (AUTO) 8.3 K/uL (3.8-11.8)
[2017-05-27] MEDS: CARVEDILOL 3.125 MG TABLET PO SCH ×2 (08:37→18:33)
[2017-05-27] MEDS: TAMSULOSIN HCL 0.4 MG CAP.SR.24H PO SCH (08:38)
[2017-05-27] MEDS: SERTRALINE HCL 50 MG TABLET PO SCH (08:38)
[2017-05-27] MEDS: PANTOPRAZOLE SODIUM 40 MG VIAL IV SCH (08:38)
[2017-05-27] MEDS: IV D5 1/2 NS 1000 ML 1,000 ML IV PRN ×2 (08:39→20:44)
[2017-05-27 08:49] LABS: BAND % (MANUAL) 1 % (0-10); BASOPHILS % (MANUAL) 1 % (0-2); EOSINOPHILS % (MANUAL) 4 % (0-8); LYMPHOCYTES % (MANUAL) 22 % (20-40); MONOCYTES % (MANUAL) 7 % (2-10); NEUTROPHILS % (MANUAL) 65 % (42-75)
[2017-05-27] MEDS ORDERED: ASPIRIN 300 MG RECTAL SUPP RC SCH (09:00)
--- NOTE | 2017-05-27 09:14 | NUR ---
PT REFUSED aspirin suppository. pt does not want suppository. explained risks and benefits. pt continues to refuse. will continue to monitor.
--- NOTE | 2017-05-27 09:27 | NUR ---
pt had bigeminy on cardiact monitor. will continue to observe.
[2017-05-27] MEDS: CIPROFLOXACIN IV 400 MG in PREMIXED 1 EACH IV SCH ×2 (09:46→20:44)
[2017-05-27] MEDS: MORPHINE SULFATE 4 MG/1 ML DISP.SYRIN IV PRN ×3 (10:34→22:07)
--- NOTE | 2017-05-27 11:27 | NUR ---
pt vitals assessed. pt bp low and pt showing irwin 99.3 low grade fever. urine strained and found small crystaliized stone. Lot Boss mansoor aware. chekced workers compensation adjuster and seen multifocal pvc with trigeminy. Lot Boss states to monitor patient and Md grayson will come in. will continue to monitor.
[2017-05-27 12:12] VITALS: BP 105/46
--- NOTE | 2017-05-27 15:11 | NUR ---
pt seen by dr rancho cervantes urologist. pt assessed. showed calculus to md and calculus was sent to lab for chemical analysis. diet advanced to soft diet. md ordered to continue fluids. check chart for md notes. pt can continue po meds as ordered. will continue to monitor.
[2017-05-27 15:16] VITALS: BP 102/41
--- NOTE | 2017-05-27 16:32 | NUR ---
helen ordered to have urine strained. restart iv 22 at right forearm. will continue to monitor.
--- NOTE | 2017-05-27 18:34 | NUR ---
checked vitals. Hr at 43 on vitals machine. reassessed with monitor and storage bin tender. hr at 86. bp within range. carvidelol given.
--- NOTE | 2017-05-27 18:56 | NUR ---
pt stable throughout the day. pt iv site intact. will endorse to material handler 2nd shift nurse.
--- NOTE | 2017-05-27 19:30 | NUR ---
Received patient laying in bed. Asleep at the moment. No acute distress noted. IVF infusing on the right FA. Safety initiated. Call light within reach. Will continue to monitor.
[2017-05-27 20:06] VITALS: BP 113/90
[2017-05-27] MEDS: LACTOBACILLUS RHAMNOSUS GG 1 EACH CAPSULE PO SCH (20:44)
[2017-05-27] MEDS: TEMAZEPAM 15 MG CAPSULE PO SCH (20:49)
[2017-05-28] MEDS: PIPERACILLIN/TAZOBACTAM/D5W 3.375 G in PREMIXED 1 EACH IV SCH ×2 (05:19→13:13)
[2017-05-28 05:24] VITALS: BP 112/86
[2017-05-28] MEDS: GABAPENTIN 300 MG CAPSULE PO SCH ×2 (06:04→13:16)
[2017-05-28] MEDS: diphenhydrAMINE 50 MG/1 ML VIAL IV PRN (06:04)
[2017-05-28] MEDS: MORPHINE SULFATE 4 MG/1 ML DISP.SYRIN IV PRN ×2 (06:04→11:15)
--- NOTE | 2017-05-28 06:12 | NUR ---
Patient slept t/o shift. No acute distress noted. Patient remains A&O x 4. Skin remains intact. Patient c/o pain 10/10 in the right upper quadrant, meds given, stated relief. Vital signs stable. IVF infusing. Urine is still being strained. No stone visible. Room was kept clutter free. Bed in low and locked position. Safety and comfort measures maintained t/o shift. All meds given as ordered. All needs met.
[2017-05-28 06:55] LABS: BASOPHILS # (AUTO) 0.1 K/uL (0.0-8.0); BASOPHILS % (AUTO) 0.8 % (0.0-2.0); EOSINOPHILS # (AUTO) 0.3 K/uL (0.0-0.7); HEMATOCRIT 34.6 % (31.2-41.9); HEMOGLOBIN 10.8 g/dL (10.9-14.3); LYMPHOCYTES # (AUTO) 1.5 K/uL (20.0-40.0); LYMPHOCYTES % (AUTO) 21.5 % (20.5-51.5); MEAN CORPUSCULAR HEMOGLOBIN 23.2 uug (24.7-32.8); MEAN CORPUSCULAR HGB CONC 31 g/dL (32.3-35.6); MEAN CORPUSCULAR VOLUME 74.1 fL (75.5-95.3); MONOCYTES # (AUTO) 0.6 K/uL (2.0-10.0); MONOCYTES % (AUTO) 9.4 % (0.0-11.0); NEUTROPHILS # (AUTO) 4.4 K/uL (1.8-8.9); NEUTROPHILS % (AUTO) 64.3 % (38.5-71.5); PLATELET COUNT (AUTO) 243 K/uL (179-408); RED BLOOD CELL COUNT(AUTO) 4.67 MIL/uL (3.63-4.92); WHITE BLOOD COUNT (AUTO) 6.8 K/uL (3.8-11.8)
[2017-05-28] MEDS ORDERED: PANTOPRAZOLE SODIUM 40 MG TABLET.DR PO SCH (07:00)
[2017-05-28 07:12] LABS: BILIRUBIN,TOTAL 0.3 mg/dL (0.2-1.0); CREATININE 1.2 mg/dL (0.6-1.3); PHOSPHOROUS 3.1 mg/dL (2.5-4.9); POTASSIUM 4.2 mmol/L (3.5-5.1); TOTAL PROTEIN, SERUM 6.1 g/dL (6.4-8.2)
--- NOTE | 2017-05-28 07:30 | NUR ---
Received patient laying in bed. Asleep at the moment. No acute distress noted. IVF infusing on the right FA. Safety initiated. Call light within reach. Will continue to monitoR
[2017-05-28] MEDS: SERTRALINE HCL 50 MG TABLET PO SCH (08:14)
[2017-05-28] MEDS: TAMSULOSIN HCL 0.4 MG CAP.SR.24H PO SCH (08:14)
[2017-05-28] MEDS: LACTOBACILLUS RHAMNOSUS GG 1 EACH CAPSULE PO SCH (08:14)
[2017-05-28] MEDS: CARVEDILOL 3.125 MG TABLET PO SCH (08:15)
[2017-05-28] MEDS: CIPROFLOXACIN IV 400 MG in PREMIXED 1 EACH IV SCH (08:18)
[2017-05-28 08:21] LABS: BAND % (MANUAL) 1 % (0-10); EOSINOPHILS % (MANUAL) 4 % (0-8); LYMPHOCYTES % (MANUAL) 20 % (20-40); MONOCYTES % (MANUAL) 13 % (2-10); NEUTROPHILS % (MANUAL) 62 % (42-75)
[2017-05-28] MEDS ORDERED: ASPIRIN 325 MG TABLET PO SCH (09:00)
[2017-05-28 11:37] LABS: IRON, SERUM 15 ug/dL (50-175)
[2017-05-28 12:52] VITALS: BP 98/50
[2017-05-28] MEDS ORDERED: LACT1CAP57 PO ×3 (13:29→13:51)
[2017-05-28] MEDS ORDERED: TAMS-3 PO (13:29)
[2017-05-28] MEDS ORDERED: FERR325T28 PO (13:29)
[2017-05-28] MEDS ORDERED: HYDR-3326 PO (13:29)
[2017-05-28] MEDS ORDERED: SERT50TA12 PO (13:29)
[2017-05-28] MEDS ORDERED: FERROUS SULFATE 325 MG TABEC PO SCH (13:30)
--- NOTE | 2017-05-28 15:09 | NUR ---
D/C ORDERS RECEIVED NOTED AND CARRIED OUT.D/C HEPLOCK PER MD ORDERS.D/C INSTRUCTIONS AND EDUCATION GIVEN TO THE PT.PT LEFT THE FACILITY VIA PRIVATE CAR IN STABLE CONDITION.,
== END 2017-05-28 15:15 | disposition home or self-care (01) | DRG 465 ==
LOC: ER 21:10 → MED 05-26 02:50 → TELE 05-26 13:25 → MED 05-27 12:15
PROVIDERS: ADMIT Internal Medicine; ATTEND Nurse Practitioner Acute Care
DX: N13.2 Hydronephrosis with renal and ureteral calculous obstruction (principal); N17.9 Acute kidney failure, unspecified; I24.8 Other forms of acute ischemic heart disease; R65.10 Systemic inflammatory response syndrome (SIRS) of non-infectious origin without acute organ dysfunction; I11.0 Hypertensive heart disease with heart failure; E44.0 Moderate protein-calorie malnutrition; I42.9 Cardiomyopathy, unspecified; I50.22 Chronic systolic (congestive) heart failure; D50.9 Iron deficiency anemia, unspecified; E11.9 Type 2 diabetes mellitus without complications; E83.51 Hypocalcemia; N20.0 Calculus of kidney; N13.0 Hydronephrosis with ureteropelvic junction obstruction; Z87.442 Personal history of urinary calculi; F31.9 Bipolar disorder, unspecified; G40.909 Epilepsy, unspecified, not intractable, without status epilepticus; K80.20 Calculus of gallbladder without cholecystitis without obstruction; M89.8X9 Other specified disorders of bone, unspecified site; I25.2 Old myocardial infarction; I25.10 Atherosclerotic heart disease of native coronary artery without angina pectoris; Z68.30 Body mass index [BMI] 30.0-30.9, adult; E87.6 Hypokalemia; F43.10 Post-traumatic stress disorder, unspecified; E02 Subclinical iodine-deficiency hypothyroidism; I08.1 Rheumatic disorders of both mitral and tricuspid valves; J98.11 Atelectasis; Z79.82 Long term (current) use of aspirin; I49.3 Ventricular premature depolarization; I27.20 Pulmonary hypertension, unspecified; G89.29 Other chronic pain; R16.0 Hepatomegaly, not elsewhere classified
CPT/HCPCS: 36415; 70030-TC; 71045; 76770; 78445; 82360; 83550; 83605; 83690; 83735; 84100; 84443; 84481; 84703; 85025; 85730; 87040; 87086; 93005; 93307; A4663; A9537; C9113; J0744; J1170; J1200; J2270; J2405; J2543; J2765; J3490; J7030; Q0163

== ENCOUNTER 2017-12-28 02:15 | Inpatient (IN) | payer OTHER ==
[~2017-12-28] VITALS: Ht 167.6 cm; Wt 80.4 kg
[~2017-12-28 02:15] MED LIST changes: +ALPR0.255 PO; -CARV3.122 PO; -FURO20TA4 PO; +HYDR-3326 PO; +LACT1CAP57 PO; -METR500T PO; +TAMS-3 PO; +TEMA15CA PO
--- NOTE | 2017-12-28 02:30 | NUR ---
Dr. Erickson at bedside for MSE.
[2017-12-28] MEDS ORDERED: ONDANSETRON 4 MG/2 ML VIAL ONE (02:38)
[2017-12-28] MEDS ORDERED: HYDROMORPHONE 1 MG/1 ML DISP.SYRIN ONE (02:38)
--- NOTE | 2017-12-28 02:40 | NUR ---
Xray at bedside.
[2017-12-28 02:44] LABS: BASOPHILS # (AUTO) 0.1 K/uL (0.0-8.0); BASOPHILS % (AUTO) 1.1 % (0.0-2.0); EOSINOPHILS # (AUTO) 0.3 K/uL (0.0-0.7); EOSINOPHILS % (AUTO) 2.7 % (0.0-7.0); HEMATOCRIT 38.2 % (31.2-41.9); HEMOGLOBIN 12.2 g/dL (10.9-14.3); LYMPHOCYTES # (AUTO) 2.5 K/uL (20.0-40.0); LYMPHOCYTES % (AUTO) 24.9 % (20.5-51.5); MEAN CORPUSCULAR HEMOGLOBIN 22.1 uug (24.7-32.8); MEAN CORPUSCULAR HGB CONC 32 g/dL (32.3-35.6); MEAN CORPUSCULAR VOLUME 69.2 fL (75.5-95.3); MONOCYTES # (AUTO) 0.8 K/uL (2.0-10.0); MONOCYTES % (AUTO) 8.6 % (0.0-11.0); NEUTROPHILS # (AUTO) 6.2 K/uL (1.8-8.9); NEUTROPHILS % (AUTO) 62.7 % (38.5-71.5); PLATELET COUNT (AUTO) 365 K/uL (179-408); RED BLOOD CELL COUNT(AUTO) 5.51 MIL/uL (3.63-4.92); WHITE BLOOD COUNT (AUTO) 9.9 K/uL (3.8-11.8)
[2017-12-28] MEDS ORDERED: HYDROMORPHONE 1 MG/1 ML DISP.SYRIN IV ONE (02:45)
[2017-12-28] MEDS ORDERED: IV NORMAL SALINE 1000 ML BAG IV ONE (02:45)
[2017-12-28] MEDS ORDERED: ONDANSETRON 4 MG/2 ML VIAL IV ONE (02:45)
[2017-12-28 02:53] LABS: CREATININE 1.1 mg/dL (0.6-1.3); POTASSIUM 3.3 mmol/L (3.5-5.1)
[2017-12-28 03:05] LABS: BILIRUBIN,DIRECT 0.1 mg/dL (0.0-0.2); BILIRUBIN,TOTAL 0.5 mg/dL (0.2-1.0); TOTAL PROTEIN, SERUM 8.4 g/dL (6.4-8.2)
--- NOTE | 2017-12-28 03:13 | NUR ---
Patient states her face is itching. MD notified.
[2017-12-28] MEDS ORDERED: diphenhydrAMINE 50 MG/1 ML VIAL IV ONE (03:15)
--- NOTE | 2017-12-28 03:23 | NUR ---
Ultrasound at bedside.
[2017-12-28] MEDS ORDERED: diphenhydrAMINE 50 MG/1 ML VIAL ONE (03:25)
[2017-12-28] MEDS ORDERED: FUROSEMIDE 40 MG/4 ML VIAL ONE (03:25)
[2017-12-28] MEDS ORDERED: FUROSEMIDE 20 MG/2 ML VIAL IV ONE (03:30)
[2017-12-28 03:32] LABS: EOSINOPHILS % (MANUAL) 3 % (0-8); LYMPHOCYTES % (MANUAL) 29 % (20-40); MONOCYTES % (MANUAL) 5 % (2-10); NEUTROPHILS % (MANUAL) 63 % (42-75)
[2017-12-28] MEDS ORDERED: LORAZEPAM 2 MG/1 ML VIAL ONE (03:33)
[2017-12-28] MEDS ORDERED: MORPHINE SULFATE 4 MG/1 ML DISP.SYRIN ONE (03:33)
--- NOTE | 2017-12-28 03:38 | NUR ---
Patient was noted with an episodes of severe pain , anxiety, and subjective SOB. Patient HR @ 99, SaO2 @ 100% on R/A at this time. ER MD at bedside during this episode, new orders noted and carried out. US at bedside, patient has a 3cm gallstone per findings.
--- NOTE | 2017-12-28 03:40 | NUR ---
Per ER MD, patient is not stable for transfer. Patient to be admitted to Telemetry.
--- NOTE | 2017-12-28 03:40 | NUR ---
Dr. Erickson on panel call with Tristin Sofia MD. Pt accepted to Tele, diagnosis Congestive Heart Failure.
[2017-12-28] MEDS ORDERED: MAGNESIUM HYDROXIDE 30 ML LIQUID UDC PO PRN (03:45)
[2017-12-28] MEDS ORDERED: MORPHINE SULFATE 4 MG/1 ML DISP.SYRIN IV ONE (03:45)
[2017-12-28] MEDS ORDERED: ONDANSETRON 4 MG/2 ML VIAL IV PRN (03:45)
[2017-12-28] MEDS ORDERED: LORAZEPAM 2 MG/1 ML VIAL IV ONE (03:45)
[2017-12-28] MEDS ORDERED: ACETAMINOPHEN 325 MG TABLET PO PRN ×2 (03:45)
[2017-12-28] MEDS ORDERED: ALPRAZOLAM 0.25 MG TABLET PO PRN (03:45)
[2017-12-28] MEDS ORDERED: NITROGLYCERIN 0.4 MG/TAB BOTTLE SL PRN (03:45)
--- NOTE | 2017-12-28 03:49 | NUR ---
Spoke to Delmy from [facility], pending call back from [facility] for MD to MD report. patient remains unstable for transfer at this time.
--- NOTE | 2017-12-28 03:50 | NUR ---
Patient provided urine sample, sent to lab.
--- NOTE | 2017-12-28 03:58 | NUR ---
Report given to Anjali SIERRA Tele.
--- NOTE | 2017-12-28 04:15 | NUR ---
IN FROM ER VIA [facility], ADMITTED 47 YEAR OLD FEMALE WITH DX OF CHF/CHEST PAIN. AOX1, NO SIGNS OF ACUTE DISTRESS NOTED AT THIS TIME. SODA DRIER FEEDER APPLIED SHOWS NORMAL SINUS RHYTHM WITH HR OF 85. ON O2 2LPM VIA NC, TOLERATED WELL. UNABLE TO OBTAIN SUBJECTIVE ASSESSMENT DATA SECONDARY TO PT DROWSINESS. PHYSICAL ASSESSMENT DONE. SAFETY MEASURES INITIATED, HOB RAISED,PLACED BED ON LOW, LOCKED POSITION WITH TWO SIDE RAILS UP. CALL GILES AND PT BELONGINGS WITHIN REACH.
[2017-12-28 04:29] LABS: *URINE HCG, QUAL NEGATIVE (NEGATIVE)
[2017-12-28 04:30] LABS: *BILIRUBIN,URIN NEGATIVE (NEGATIVE); *BLOOD, URINE NEGATIVE (NEGATIVE); *CLARITY,URINE CLEAR (CLEAR); *KETONES,URINE NEGATIVE (NEGATIVE); *PROTEIN,URINE NEGATIVE (NEGATIVE); *UROBILINOGEN,URINE 0.2 E.U./dl (NORMAL); LEUKOCYTE ESTERASE ,URINE NEGATIVE (NEGATIVE); NITRITE, URINE NEGATIVE (NEGATIVE); UGLUCOSE NEGATIVE (NEGATIVE)
[2017-12-28 04:32] LABS: *COLOR,URINE LIGHT YELLOW (YELLOW)
[2017-12-28 04:39] LABS: BACTERIA,URINE NONE SEEN /HPF (NONE SEEN); RBC,URINE NONE SEEN /HPF (0-3); SQUAMOUS EPITHELIAL CELL,UR FEW /HPF (NONE SEEN); URINE AMORPHOUS PHOSPHATES FEW /HPF; WBC,URINE 0-3 /HPF (0-3)
[2017-12-28 04:50] VITALS: BP 150/88
[2017-12-28] MEDS: GABAPENTIN 300 MG CAPSULE PO SCH ×3 (06:00→21:36)
[2017-12-28] MEDS: PANTOPRAZOLE SODIUM 40 MG TABLET.DR PO SCH (06:20)
--- NOTE | 2017-12-28 06:42 | NUR ---
PT ASLEEP ON BED, NO SIGNS OF DISCOMFORT NOTED AT THIS TIME. ON TELE, SINUS RHYTHM WITH HR OF 80. ON O2 2L, TOLERATED WELL. ALL NEEDS ANTICIPATED AND ATTENDED. SAFE ENVIRONMENT MAINTAINED AT ALL TIMES, CALL GILES WITHIN REACH. STILL UNABLE TO OBTAIN INITIAL SUBJECTIVE ASSESSMENT DATA, WILL ENDORSE ACCORDINGLY TO AM SHIFT NURSE.
--- NOTE | 2017-12-28 07:10 | NUR ---
received report, patient received sleeping in bed this am, side rails x2, call light within reach no distress noted from patient continue to monitor
[2017-12-28] MEDS ORDERED: Coreg PO (08:39)
[2017-12-28] MEDS ORDERED: lisinopril (08:41)
[2017-12-28] MEDS ORDERED: lasix PO (08:41)
[2017-12-28] MEDS ORDERED: losartan PO (08:49)
[2017-12-28] MEDS ORDERED: FUROSEMIDE 40 MG/4 ML VIAL IV SCH (09:00)
[2017-12-28 09:14] LABS: IRON, SERUM 30 ug/dL (50-175)
[2017-12-28] MEDS: HYDROCODONE/APAP 5-325MG TABLET PO PRN ×2 (09:48→14:43)
[2017-12-28] MEDS: ASPIRIN EC 81 MG TABLET.DR PO SCH (09:49)
[2017-12-28] MEDS: TAMSULOSIN HCL 0.4 MG CAP.SR.24H PO SCH (09:49)
[2017-12-28] MEDS: SERTRALINE HCL 50 MG TABLET PO SCH (09:49)
[2017-12-28 10:00] VITALS: BP 131/81
[2017-12-28 11:23] VITALS: BP 122/68
[2017-12-28] MEDS: POTASSIUM CHLORIDE 20 MEQ POWDER PACKET PO ONE ×2 (12:15→13:04)
[2017-12-28] MEDS ORDERED: LOSARTAN POTASSIUM 50 MG TABLET PO SCH (12:15)
[2017-12-28 12:21] LABS: *AMPHETAMINE, URINE POSITIVE (NEGATIVE); *BARBITURATE, URINE NEGATIVE (NEGATIVE); *CANNABINOID, URINE NEGATIVE (NEGATIVE); *COCCAINE, URINE NEGATIVE (NEGATIVE); *OPIATE, URINE POSITIVE (NEGATIVE); *PHENCYCLIDINE SCREEN,URINE NEGATIVE (NEGATIVE)
[2017-12-28 12:29] VITALS: BP 139/83
--- NOTE | 2017-12-28 13:00 | NUR ---
Patient refused PO Potassium packet requested tablet form, pharmacy notified.
[2017-12-28] MEDS: LOSARTAN POTASSIUM 50 MG TABLET PO SCH (13:04)
[2017-12-28] MEDS ORDERED: POTASSIUM CHLORIDE 20 MEQ TAB.PRT.SR PO ONE (14:15)
[2017-12-28 15:05] VITALS: BP 124/66
[2017-12-28] MEDS ORDERED: TEMAZEPAM 15 MG CAPSULE PO SCH ×2 (18:00→21:00)
[2017-12-28 19:00] VITALS: BP 82/37
--- NOTE | 2017-12-28 19:49 | NUR ---
RECEIVED PT AWAKE, ALERT AND ORIENTEDX4. PT SHOWS NO SIGNS OF DISTRESS. IV INTACT AND PATENT. SAFETY AND COMFORT PROVIDED. WILL CONTINUE TO MONITOR.
[2017-12-28] MEDS ORDERED: IV NORMAL SALINE 500 ML IV ONE (22:15)
[2017-12-29] VITALS: BP 92/37
[2017-12-29 04:00] VITALS: BP 95/35
[2017-12-29 06:21] LABS: BASOPHILS # (AUTO) 0.1 K/uL (0.0-8.0); BASOPHILS % (AUTO) 0.7 % (0.0-2.0); EOSINOPHILS # (AUTO) 0.2 K/uL (0.0-0.7); EOSINOPHILS % (AUTO) 2.4 % (0.0-7.0); HEMATOCRIT 36.6 % (31.2-41.9); HEMOGLOBIN 11.8 g/dL (10.9-14.3); LYMPHOCYTES # (AUTO) 1.6 K/uL (20.0-40.0); LYMPHOCYTES % (AUTO) 18.9 % (20.5-51.5); MEAN CORPUSCULAR HEMOGLOBIN 22.6 uug (24.7-32.8); MEAN CORPUSCULAR HGB CONC 32 g/dL (32.3-35.6); MONOCYTES # (AUTO) 0.7 K/uL (2.0-10.0); MONOCYTES % (AUTO) 8.1 % (0.0-11.0); NEUTROPHILS % (AUTO) 69.9 % (38.5-71.5); PLATELET COUNT (AUTO) 358 K/uL (179-408); RED BLOOD CELL COUNT(AUTO) 5.24 MIL/uL (3.63-4.92); WHITE BLOOD COUNT (AUTO) 8.6 K/uL (3.8-11.8)
[2017-12-29] MEDS: GABAPENTIN 300 MG CAPSULE PO SCH (06:27)
[2017-12-29] MEDS: PANTOPRAZOLE SODIUM 40 MG TABLET.DR PO SCH (06:27)
[2017-12-29] MEDS: HYDROCODONE/APAP 5-325MG TABLET PO PRN (06:28)
[2017-12-29 06:34] LABS: CREATININE 1.3 mg/dL (0.6-1.3); MAGNESIUM 2.1 mg/dL (1.8-2.4); PHOSPHOROUS 3.5 mg/dL (2.5-4.9); POTASSIUM 3.6 mmol/L (3.5-5.1)
--- NOTE | 2017-12-29 06:55 | NUR ---
PT SLEPT THROUGHOUT THE SHIFT. PT SHOWS NO SIGNS OF DISTRESS.PT VITAL SIGNS WITHIN NORMAL LIMIT. AT 2236 PT WAS GIVEN IV BOLUS OF NS 500ML BY THE DOCTOR BECAUSE OF LOW BLOOD PRESSURE. PT TOLERATED IT WELL. AFTER TWO HOURS PT BLOOD PRESSURE. IV INTACT AND PATENT. PRESCRIBED MEDICATION GIVEN AND PT TOLERATED IT WELL. SAFETY AND COMFORT PROVIDED. ALL NEEDS ARE MET. WILL ENDORSE ACCORDINGLY TO DAYSIDFT NURSE FOR CONTINUITY OF CARE.
--- NOTE | 2017-12-29 07:10 | NUR ---
Received report from shift leader nurse, patient in bed awake, complains of pain in RUQ of abdomen. Bed in low position, side rails up x2. Encouraged patient to rest until pain medication takes effect. Patient agreed.
[2017-12-29 07:34] LABS: THYROID STIMULATING HORMONE 0.831 mIU/mL (0.358-3.740)
[2017-12-29] MEDS: ASPIRIN EC 81 MG TABLET.DR PO SCH (08:56)
[2017-12-29] MEDS: TAMSULOSIN HCL 0.4 MG CAP.SR.24H PO SCH ×2 (08:56→09:00)
[2017-12-29] MEDS: LOSARTAN POTASSIUM 50 MG TABLET PO SCH (09:00)
[2017-12-29] MEDS: SERTRALINE HCL 50 MG TABLET PO SCH (09:02)
[2017-12-29 09:05] LABS: EOSINOPHILS % (MANUAL) 2 % (0-8); LYMPHOCYTES % (MANUAL) 21 % (20-40); MONOCYTES % (MANUAL) 5 % (2-10); NEUTROPHILS % (MANUAL) 72 % (42-75)
--- NOTE | 2017-12-29 09:20 | NUR ---
Patient vitals recorded for medication administration. BP noted to be decreased, held HTN medication, and raised patients foot of bed. Will reassess BP.
--- NOTE | 2017-12-29 09:38 | NUR ---
Called [facility] to notify physician bond writer of patient's decrease BP as second BP recorded is 92/37.
[2017-12-29 09:46] VITALS: BP 92/37
[2017-12-29] MEDS ORDERED: IV NORMAL SALINE 500 ML IV ONE (10:00)
[2017-12-29 10:40] VITALS: BP 114/62
[2017-12-29 11:00] VITALS: BP 108/50
--- NOTE | 2017-12-29 12:20 | NUR ---
patient was informed of discharge, IV removed, and paperwork prepared for discharge, patient refused to wait and left the building.
[2017-12-30] MEDS ORDERED: LOSARTAN POTASSIUM 50 MG TABLET PO SCH (09:00)
== END 2017-12-29 12:10 | disposition left against medical advice (07) ==
LOC: ER 02:17 → TELE 03:45
PROVIDERS: ATTEND Nurse Practitioner Acute Care
DX: K80.20 Calculus of gallbladder without cholecystitis without obstruction (principal); I50.33 Acute on chronic diastolic (congestive) heart failure; I42.7 Cardiomyopathy due to drug and external agent; E87.6 Hypokalemia; F15.10 Other stimulant abuse, uncomplicated; D50.9 Iron deficiency anemia, unspecified; I11.0 Hypertensive heart disease with heart failure; F31.9 Bipolar disorder, unspecified; T43.625S Adverse effect of amphetamines, sequela; G43.909 Migraine, unspecified, not intractable, without status migrainosus; Z87.442 Personal history of urinary calculi; Z82.49 Family history of ischemic heart disease and other diseases of the circulatory system; N20.0 Calculus of kidney; I25.10 Atherosclerotic heart disease of native coronary artery without angina pectoris; G40.909 Epilepsy, unspecified, not intractable, without status epilepticus; F41.9 Anxiety disorder, unspecified; Z79.899 Other long term (current) drug therapy; I95.2 Hypotension due to drugs; T46.5X5A Adverse effect of other antihypertensive drugs, initial encounter; Y92.230 Patient room in hospital as the place of occurrence of the external cause
CPT/HCPCS: 36415; 70030-TC; 71045; 80307; 83550; 83605; 83690; 83735; 84100; 84443; 84703; 85025; 85730; 87040; 93005; 93307; A4663; J1170; J1200; J1940; J2060; J2270; J2405; J7030; J7040

== ENCOUNTER 2018-03-28 20:33 | Emergency (ER) | payer OTHER ==
[~2018-03-28] VITALS: Ht 167.6 cm; Wt 72.6 kg
[~2018-03-28 20:33] MED LIST changes: +Coreg PO; +lasix PO; +losartan PO
--- NOTE | 2018-03-28 20:45 | NUR ---
Pt ambulated in ER with the c/o intermittent CP radiating to left arm. Pt states that intensity or pain is 8/10 and describes the pain as pressure. Pt also states right flank pain x 2 days. Pt is AAO x 4 and speaking in complete sentences. Pt placed on monitor. Safe environment implemented.
[2018-03-28] MEDS ORDERED: NITROGLYCERIN 0.4 MG/TAB BOTTLE SL ONE ×2 (21:00→21:01)
[2018-03-28] MEDS ORDERED: ASPIRIN 81 MG TAB.CHEW PO ONE (21:00)
[2018-03-28] MEDS ORDERED: ASPIRIN 81 MG TAB.CHEW ONE (21:01)
[2018-03-28 21:07] LABS: BASOPHILS # (AUTO) 0.1 K/uL (0.0-8.0); BASOPHILS % (AUTO) 0.7 % (0.0-2.0); EOSINOPHILS # (AUTO) 0.2 K/uL (0.0-0.7); EOSINOPHILS % (AUTO) 2.4 % (0.0-7.0); HEMATOCRIT 34.2 % (31.2-41.9); HEMOGLOBIN 10.8 g/dL (10.9-14.3); LYMPHOCYTES # (AUTO) 1.4 K/uL (20.0-40.0); LYMPHOCYTES % (AUTO) 16.9 % (20.5-51.5); MEAN CORPUSCULAR HEMOGLOBIN 21.6 uug (24.7-32.8); MEAN CORPUSCULAR HGB CONC 32 g/dL (32.3-35.6); MEAN CORPUSCULAR VOLUME 68.3 fL (75.5-95.3); MONOCYTES # (AUTO) 0.6 K/uL (2.0-10.0); MONOCYTES % (AUTO) 7.6 % (0.0-11.0); NEUTROPHILS # (AUTO) 6.1 K/uL (1.8-8.9); NEUTROPHILS % (AUTO) 72.4 % (38.5-71.5); PLATELET COUNT (AUTO) 319 K/uL (179-408); WHITE BLOOD COUNT (AUTO) 8.5 K/uL (3.8-11.8)
[2018-03-28 21:19] LABS: CARBON DIOXIDE 27 mmol/L (21-32); CHLORIDE 104 mmol/L (98-107); GLUCOSE 98 mg/dL (74-106); POTASSIUM 3.9 mmol/L (3.5-5.1); UREA NITROGEN, BLOOD 13 mg/dL (7-18)
[2018-03-28] MEDS ORDERED: CLONIDINE HCL 0.2 MG TABLET ONE (21:22)
--- NOTE | 2018-03-28 21:26 | NUR ---
Pt states that she is unable to provide urine at this time.Pt states that she will provide urine later.
[2018-03-28] MEDS ORDERED: CLONIDINE HCL 0.2 MG TABLET PO ONE (21:30)
[2018-03-28 21:31] LABS: ALANINE AMINOTRANSFERASE 21 U/L (14-59); ALKALINE PHOSPHATASE 68 U/L (50-136); ASPARTATE AMINOTRANSFERASE 12 U/L (15-37); BILIRUBIN,DIRECT 0.1 mg/dL (0.0-0.2); BILIRUBIN,TOTAL 0.4 mg/dL (0.2-1.0); LIPASE 142 U/L (73-393); TOTAL PROTEIN, SERUM 7.7 g/dL (6.4-8.2)
--- NOTE | 2018-03-28 21:40 | NUR ---
Dr. Fields at bedside for update
[2018-03-28] MEDS ORDERED: FUROSEMIDE 40 MG/4 ML VIAL ONE (21:41)
[2018-03-28] MEDS ORDERED: FUROSEMIDE 20 MG/2 ML VIAL IV ONE (21:45)
[2018-03-28 21:59] VITALS: BP 157/101
--- NOTE | 2018-03-28 21:59 | NUR ---
IV removed. Catheter intact and site benign. Pressure and 4x4 gauze applied to site. No bleeding noted.Patient discharged to home in stable conditon. Written and verbal after care instructions given. Patient verbalizes understanding of instructions.
== END 2018-03-28 22:00 | disposition home or self-care (01) ==
LOC: ER 20:34
DX: I11.0 Hypertensive heart disease with heart failure (principal); I50.9 Heart failure, unspecified; Z88.8 Allergy status to other drugs, medicaments and biological substances; Z88.5 Allergy status to narcotic agent; Z79.82 Long term (current) use of aspirin; Z79.2 Long term (current) use of antibiotics; Z79.899 Other long term (current) drug therapy
CPT/HCPCS: 36415; 71045; 80048; 80076; 83690; 83880; 84484; 84702; 85025; 85730; 93005; 96374; 99291; J1940; 70030-TC; A4663

== ENCOUNTER 2019-07-20 23:47 | Emergency (ER) | payer OTHER ==
[~2019-07-20] VITALS: Ht 167.6 cm; Wt 72.1 kg
--- NOTE | 2019-07-21 00:05 | NUR ---
PATIENT PRESENTED TO ER C/O PAIN ON LEFT EYE 07/27. A/O X4. ABLE TO SPEAK COMPLETE SENTENCES. FOLLOWS COMMAND. RESPIRATION EVEN AND UNLABORED NO SIGNS OF DISTRESS AMBULATORY WITH STEADY GAIT NO SIGNS OF CARDIOVASCULAR DISTRESS SR UP FOR SAFETY. BED LOCKED AND LOWEST POSITION. INSTRUCTED PATIENT TO CALL NURSE FOR ASSISTANCE MONITORED ACCORDINGLY WILL CONTINUE TO MONITOR
--- NOTE | 2019-07-21 00:11 | NUR ---
DR. CHAUDHARY AT BEDSIDE FOR MSE
[2019-07-21] MEDS ORDERED: TETRACAINE HCL 0.5% OPHT DROP 2 ML BOTTLE ONE (00:15)
[2019-07-21] MEDS ORDERED: TETRACAINE HCL 0.5% OPHT DROP 2 ML BOTTLE OP ONE (00:15)
[2019-07-21] MEDS ORDERED: FLUORESCEIN SODIUM 1 MG STRIP OP ONE (00:15)
[2019-07-21] MEDS ORDERED: FLUORESCEIN SODIUM 1 MG STRIP ONE (00:15)
--- NOTE | 2019-07-21 01:15 | NUR ---
Patient does not wish to proceed with medical care recommended by ( Abad). Patient given information related to possible complications, up to and including , which could occur as a result of leaving the hospital at this time. Patient verbalizes understanding of risks involved due to leaving against medical advice. Patient has signed AMA form.
[2019-07-21 03:11] VITALS: BP 140/88
== END 2019-07-21 01:20 | disposition home or self-care (01) ==
LOC: ER 23:50
DX: H10.9 Unspecified conjunctivitis (principal); I11.0 Hypertensive heart disease with heart failure; I50.9 Heart failure, unspecified; R06.02 Shortness of breath; R05 Cough
CPT/HCPCS: 71045; A4663

== ENCOUNTER 2022-11-23 18:58 | Emergency (ER) | payer OTHER ==
[~2022-11-23] VITALS: Ht 167.6 cm; Wt 73.9 kg
[~2022-11-23 18:58] MED LIST changes: +AZIT250T13 PO; +SERT-439 PO; -SERT50TA12 PO
[2022-11-23 19:52] LABS: *BILIRUBIN,URIN NEGATIVE (NEGATIVE); *BLOOD, URINE NEGATIVE (NEGATIVE); *CLARITY,URINE CLEAR (CLEAR); *COLOR,URINE YELLOW (YELLOW); *KETONES,URINE NEGATIVE (NEGATIVE); *PROTEIN,URINE 1+ (NEGATIVE); *UROBILINOGEN,URINE 0.2 E.U./dl (NORMAL); LEUKOCYTE ESTERASE ,URINE NEGATIVE (NEGATIVE); NITRITE, URINE NEGATIVE (NEGATIVE); UGLUCOSE NEGATIVE (NEGATIVE)
[2022-11-23] MEDS ORDERED: ONDANSETRON 4 MG/2 ML VIAL IV ONE (20:15)
[2022-11-23] MEDS ORDERED: MORPHINE SULFATE 4 MG/1 ML DISP.SYRIN IV ONE ×2 (20:15→22:00)
[2022-11-23 20:22] LABS: BASOPHILS # (AUTO) 0.1 K/UL (0.0-0.2); BASOPHILS % (AUTO) 1.3 % (0.0-2.0); EOSINOPHILS # (AUTO) 0.5 K/uL (0.0-0.7); EOSINOPHILS % (AUTO) 5.6 % (0.0-7.0); HEMATOCRIT 34.5 % (31.2-41.9); HEMOGLOBIN 10.5 g/dL (10.9-14.3); LYMPHOCYTES # (AUTO) 1.9 K/uL (0.8-4.8); LYMPHOCYTES % (AUTO) 22.2 % (20.5-51.5); MEAN CORPUSCULAR HEMOGLOBIN 20.1 uug (24.7-32.8); MEAN CORPUSCULAR HGB CONC 31 g/dL (32.3-35.6); MEAN CORPUSCULAR VOLUME 65.6 fL (75.5-95.3); MONOCYTES # (AUTO) 0.6 K/uL (0.1-1.30); MONOCYTES % (AUTO) 6.5 % (0.0-11.0); NEUTROPHILS # (AUTO) 5.6 K/uL (1.8-8.9); NEUTROPHILS % (AUTO) 64.4 % (38.5-71.5); PLATELET COUNT (AUTO) 357 K/uL (179-408); RED BLOOD CELL COUNT(AUTO) 5.25 MIL/uL (3.63-4.92); RED CELL DISTRIBUTION WIDTH 18.4 % (12.3-17.7); WHITE BLOOD COUNT (AUTO) 8.7 K/uL (3.8-11.8)
[2022-11-23] MEDS ORDERED: MORPHINE SULFATE 4 MG/1 ML DISP.SYRIN ONE ×2 (20:24→22:00)
[2022-11-23] MEDS ORDERED: IV NS 1000 ML 1,000 ML IV ONE (20:30)
[2022-11-23 20:53] LABS: DIFFERENTIAL COMMENT 1
[2022-11-23 21:04] LABS: ALBUMIN 3.3 g/dL (3.4-5.0); BILIRUBIN,DIRECT 0.1 mg/dL (0.0-0.2); BILIRUBIN,TOTAL 0.3 mg/dL (0.2-1.0); CREATININE 1.1 mg/dL (0.6-1.3); POTASSIUM 3.5 mmol/L (3.5-5.1)
[2022-11-23] MEDS ORDERED: HYDR-4209 PO (22:08)
[2022-11-23 22:44] VITALS: BP 160/95; O2SAT 100
== END 2022-11-23 22:46 | disposition home or self-care (01) ==
LOC: ER 19:00
DX: K80.20 Calculus of gallbladder without cholecystitis without obstruction (principal); R59.1 Generalized enlarged lymph nodes; I11.0 Hypertensive heart disease with heart failure; I50.9 Heart failure, unspecified; G43.909 Migraine, unspecified, not intractable, without status migrainosus; I25.10 Atherosclerotic heart disease of native coronary artery without angina pectoris; Z88.8 Allergy status to other drugs, medicaments and biological substances; Z79.82 Long term (current) use of aspirin; Z79.2 Long term (current) use of antibiotics; Z79.899 Other long term (current) drug therapy
CPT/HCPCS: 99285; 74176; 96374; 76705; 96375; 80076; 80048; 81003; 83690; 85025; 36415; 96376; J2270 ×2; J7040; A4663

== ENCOUNTER 2023-02-28 00:49 | Emergency (ER) | payer OTHER ==
[~2023-02-28] VITALS: Ht 167.6 cm; Wt 74.8 kg
[~2023-02-28 00:49] MED LIST changes: +HYDR-4209 PO
[2023-02-28] MEDS ORDERED: diphenhydrAMINE 50 MG CAPSULE ONE (01:28)
[2023-02-28] MEDS ORDERED: HYDROMORPHONE 2 MG/1 ML DISP.SYRIN ONE (01:29)
[2023-02-28] MEDS ORDERED: ONDANSETRON ODT 4 MG TAB.RAPDIS ONE (01:29)
[2023-02-28] MEDS ORDERED: ONDANSETRON ODT 4 MG TAB.RAPDIS SL ONE (01:30)
[2023-02-28] MEDS ORDERED: diphenhydrAMINE 50 MG CAPSULE PO ONE (01:30)
[2023-02-28] MEDS ORDERED: HYDROMORPHONE 1 MG/1 ML DISP.SYRIN IM ONE (01:30)
[2023-02-28 01:37] LABS: BASOPHILS # (AUTO) 0.1 K/UL (0.0-0.2); EOSINOPHILS # (AUTO) 0.1 K/uL (0.0-0.7); EOSINOPHILS % (AUTO) 1.3 % (0.0-7.0); HEMATOCRIT 35.4 % (31.2-41.9); LYMPHOCYTES # (AUTO) 0.7 K/uL (0.8-4.8); LYMPHOCYTES % (AUTO) 8.8 % (20.5-51.5); MEAN CORPUSCULAR HGB CONC 31 g/dL (32.3-35.6); MEAN CORPUSCULAR VOLUME 64.2 fL (75.5-95.3); MONOCYTES # (AUTO) 0.8 K/uL (0.1-1.30); MONOCYTES % (AUTO) 10.4 % (0.0-11.0); NEUTROPHILS # (AUTO) 6.1 K/uL (1.8-8.9); NEUTROPHILS % (AUTO) 78.5 % (38.5-71.5); PLATELET COUNT (AUTO) 280 K/uL (179-408); RED BLOOD CELL COUNT(AUTO) 5.51 MIL/uL (3.63-4.92); RED CELL DISTRIBUTION WIDTH 17.9 % (12.3-17.7); WHITE BLOOD COUNT (AUTO) 7.8 K/uL (3.8-11.8)
[2023-02-28 01:39] LABS: DIFFERENTIAL COMMENT 1
[2023-02-28] MEDS ORDERED: CARVEDILOL 3.125 MG TABLET PO ONE (01:45)
[2023-02-28] MEDS ORDERED: FUROSEMIDE 20 MG TABLET PO ONE (01:45)
[2023-02-28] MEDS ORDERED: LISINOPRIL 10 MG TABLET PO ONE (01:45)
[2023-02-28] MEDS ORDERED: LISINOPRIL 10 MG TABLET ONE (01:46)
[2023-02-28] MEDS ORDERED: FUROSEMIDE 20 MG TABLET ONE (01:46)
[2023-02-28] MEDS ORDERED: CARVEDILOL 6.25 MG TABLET ONE (01:47)
[2023-02-28 01:49] LABS: ALBUMIN 3.2 g/dL (3.4-5.0); BILIRUBIN,DIRECT 0.1 mg/dL (0.0-0.2); BILIRUBIN,TOTAL 0.3 mg/dL (0.2-1.0); CALCIUM 8.9 mg/dL (8.5-10.1); CREATININE 1.1 mg/dL (0.6-1.3); POTASSIUM 3.4 mmol/L (3.5-5.1); TOTAL PROTEIN, SERUM 7.3 g/dL (6.4-8.2)
[2023-02-28] MEDS ORDERED: ONDA4TAB11 PO (03:27)
[2023-02-28] MEDS ORDERED: paxlovid PO (03:27)
[2023-02-28] MEDS ORDERED: HYDR-3980 PO (03:27)
[2023-02-28 03:58] VITALS: BP 127/66; TEMP 98.9; O2SAT 99
== END 2023-02-28 03:45 | disposition home or self-care (01) ==
LOC: ER 00:54
DX: U07.1 COVID-19 (principal); J40 Bronchitis, not specified as acute or chronic; K80.20 Calculus of gallbladder without cholecystitis without obstruction; J02.9 Acute pharyngitis, unspecified; M79.10 Myalgia, unspecified site; G43.909 Migraine, unspecified, not intractable, without status migrainosus; G40.909 Epilepsy, unspecified, not intractable, without status epilepticus; I11.0 Hypertensive heart disease with heart failure; I50.9 Heart failure, unspecified; Z98.890 Other specified postprocedural states; Z79.899 Other long term (current) drug therapy; Z88.2 Allergy status to sulfonamides
CPT/HCPCS: 36415; 71045; 76700; 83690; 85025; A4606; A4663; J1170; Q0162; Q0163

== ENCOUNTER 2023-05-20 08:59 | Emergency (ER) | payer OTHER ==
[~2023-05-20] VITALS: Ht 167.6 cm; Wt 70.3 kg
[~2023-05-20 08:59] MED LIST changes: +HYDR-3980 PO; +ONDA4TAB11 PO; +paxlovid PO
[2023-05-20 10:32] LABS: BASOPHILS # (AUTO) 0.1 K/UL (0.0-0.2); EOSINOPHILS # (AUTO) 0.3 K/uL (0.0-0.7); EOSINOPHILS % (AUTO) 2.8 % (0.0-7.0); HEMATOCRIT 34.1 % (31.2-41.9); HEMOGLOBIN 10.7 g/dL (10.9-14.3); LYMPHOCYTES # (AUTO) 1.6 K/uL (0.8-4.8); LYMPHOCYTES % (AUTO) 15.2 % (20.5-51.5); MEAN CORPUSCULAR HEMOGLOBIN 20.6 uug (24.7-32.8); MEAN CORPUSCULAR HGB CONC 31 g/dL (32.3-35.6); MEAN CORPUSCULAR VOLUME 65.8 fL (75.5-95.3); MONOCYTES # (AUTO) 0.5 K/uL (0.1-1.30); MONOCYTES % (AUTO) 4.4 % (0.0-11.0); NEUTROPHILS # (AUTO) 7.9 K/uL (1.8-8.9); NEUTROPHILS % (AUTO) 76.6 % (38.5-71.5); PLATELET COUNT (AUTO) 322 K/uL (179-408); RED BLOOD CELL COUNT(AUTO) 5.18 MIL/uL (3.63-4.92); RED CELL DISTRIBUTION WIDTH 17.4 % (12.3-17.7); WHITE BLOOD COUNT (AUTO) 10.4 K/uL (3.8-11.8)
[2023-05-20 10:34] LABS: DIFFERENTIAL COMMENT 1
[2023-05-20 10:42] LABS: CALCIUM 8.8 mg/dL (8.5-10.1); CARBON DIOXIDE 24 mmol/L (21-32); CHLORIDE 107 mmol/L (98-107); CREATININE 1.1 mg/dL (0.6-1.3); GLUCOSE 140 mg/dL (74-106); SODIUM SERUM 141 mmol/L (136-145); UREA NITROGEN, BLOOD 21 mg/dL (7-18)
[2023-05-20 10:55] LABS: ALANINE AMINOTRANSFERASE 10 U/L (14-59); ALBUMIN 3.4 g/dL (3.4-5.0); ALKALINE PHOSPHATASE 84 U/L (50-136); ASPARTATE AMINOTRANSFERASE 5 U/L (15-37); BILIRUBIN,DIRECT 0.1 mg/dL (0.0-0.2); BILIRUBIN,TOTAL 0.6 mg/dL (0.2-1.0); NT-PRO BNP 3162 pg/mL (0-125); TOTAL PROTEIN, SERUM 7.3 g/dL (6.4-8.2)
[2023-05-20] MEDS ORDERED: NITROGLYCERIN OINT 1 GM PACKET TP ONE (12:41)
[2023-05-20] MEDS ORDERED: OXYCODONE/APAP 5-325 MG TABLET ONE (12:42)
[2023-05-20] MEDS ORDERED: hydrALAZINE HCL 20 MG/1 ML VIAL ONE (12:42)
[2023-05-20] MEDS: hydrALAZINE HCL 20 MG/1 ML VIAL IV ONE (12:45)
[2023-05-20] MEDS: NITROGLYCERIN OINT 1 GM PACKET TP ONE (12:55)
[2023-05-20] MEDS: OXYCODONE/APAP 5-325 MG TABLET PO ONE (12:55)
[2023-05-20 13:36] VITALS: BP 167/97; O2SAT 98
== END 2023-05-20 13:20 | disposition left against medical advice (07) ==
LOC: ER 09:02
DX: I11.0 Hypertensive heart disease with heart failure (principal); I50.9 Heart failure, unspecified; Z79.82 Long term (current) use of aspirin; Z90.49 Acquired absence of other specified parts of digestive tract; Z79.899 Other long term (current) drug therapy; Z60.2 Problems related to living alone; Z88.1 Allergy status to other antibiotic agents
CPT/HCPCS: 99291; 96374; 80076; 80048; 83880; 85025; 85379; 85730; 84484; 36415; 93005; 71045; J0360; A4606; A4663